=== PATIENT | female | born 1960 | race American Indian/Alaskan Native ===

== ENCOUNTER 2016-10-01 10:55 | Emergency (ER) | payer OTHER ==
[2016-10-01 10:56] VITALS: BMI 25.8
[2016-10-01 11:05] VITALS: TEMP 98
[2016-10-01] MEDS ORDERED: Fluticasone Nasal 50 mcg/Spray NS STA (11:26)
--- NOTE | 2016-10-01 11:38 | ED PDOC ---
Arrival/HPI - General Historian: Patient - History of Present Illness Time/Duration: < week Symptom Onset: Gradual Symptom Course: Unchanged Severity Level: 6 <Efren Rivera - Last Filed: 10/01/16 11:28> <Geo Billings - Last Filed: 10/01/16 15:41> - General Chief Complaint: Headache Time Seen by Provider: 10/01/16 11:10 - History of Present Illness Narrative History of Present Illness (Text): 10/01/16 11:28 This is a 55 year old female with a PMH notable for HTN presenting to the ED for evaluation of headache x 2 days. The patient notes that the headache began Tuesday night before bed. The patient states that she has recurrent sinus infections. The pain is described as a throbbing pressure around and behind her eyes. The patient notes that she swept several stories of stairs on Tuesday and has been sneezing excessively since then. The patient notes that she has seasonal allergies that begin around this time annually. The patient denies fever, chills, chest pain, SOB, abdominal pain, N/V/D/C, changes in bowel/ bladder, and extremity weakness/paresthesias. PMH: HTN Soc: 1/2ppd x 40 years, Denies EtOH/Illicit Drugs Surg: None Allergy: NKDA (Efren Rivera) Past Medical History - Provider Review Nursing Documentation Reviewed: Yes - Travel History Have you recently traveled outside [place] w/in the past 3 mons?: No - Past History Past History: Non-Contributing - Tetanus Immunization Tetanus Immunization: Unknown - Cardiac Hx Cardiac Disorders: Yes Hx Hypertension: Yes - Pulmonary Hx Respiratory Disorders: No - Neurological Hx Neurological Disorder: Yes Hx Vertigo: Yes - HEENT Hx HEENT Disorder: No - Renal Hx Renal Disorder: No - Endocrine/Metabolic Hx Endocrine Disorders: No - Hematological/Oncological Hx Blood Disorders: No - Integumentary Hx Dermatological Disorder: No - Musculoskeletal/Rheumatological Hx Musculoskeletal Disorders: No - Gastrointestinal Hx Gastrointestinal Disorders: No - Genitourinary/Gynecological Hx Genitourinary Disorders: No - Psychiatric Hx Psychophysiologic Disorder: No Hx Substance Use: No - Anesthesia Hx Anesthesia: No <Efren Rivera - Last Filed: 10/01/16 11:28> Family/Social History - Physician Review Nursing Documentation Reviewed: Yes Family/Social History: No Known Family HX Smoking Status: Light Smoker < 10 Cigarettes Daily (x 40 years) Hx Alcohol Use: Yes Hx Substance Use: No <Efren Rivera - Last Filed: 10/01/16 11:28> Allergies/Home Meds <Efren Rivera - Last Filed: 10/01/16 11:28> <Geo Billings - Last Filed: 10/01/16 15:41> Allergies/Adverse Reactions: Allergies No Known Allergies Allergy (Verified 06/14/16 12:51) Review of Systems - Physician Review All systems were reviewed & negative as marked: Yes - Review of Systems Constitutional: absent: Fatigue, Fevers Eyes: absent: Vision Changes ENT: absent: Hearing Changes Respiratory: Cough. absent: SOB, Sputum Cardiovascular: absent: Chest Pain Gastrointestinal: absent: Abdominal Pain Genitourinary Female: absent: Dysuria Musculoskeletal: absent: Arthralgias Skin: absent: Rash Neurological: Headache. absent: Dizziness, Focal Weakness Hemo/Lymphatic: absent: Adenopathy Psychiatric: absent: Anxiety <Efren Rivera - Last Filed: 10/01/16 11:28> Physical Exam Temperature: Afebrile Blood Pressure: Hypertensive Pulse: Regular Respiratory Rate: Normal Appearance: Positive for: Well-Appearing, Non-Toxic, Comfortable Pain Distress: None Mental Status: Positive for: Alert and Oriented X 3 - Systems Exam Head: Present: Atraumatic, Normocephalic, Tenderness (maxillary and frontal sinus tenderness to palpation). No: Contusion, Swelling Pupils: Present: PERRL Extroacular Muscles: Present: EOMI. No: Gaze Palsy Conjunctiva: Present: Normal. No: Injected Mouth: Present: Moist Mucous Membranes Pharnyx: Present: Normal. No: ERYTHEMA, EXUDATE, TONSILS ENLARGED, Peritonsilar Swelling, Uvular Deviation, Soft Palate/Uvular Edema Nose (External): Present: Atraumatic Nose (Internal): Present: Normal Inspection, Moist. No: Rhinorrhea, Purulent Mucous Neck: Present: Normal Range of Motion. No: Meningeal Signs, MIDLINE TENDERNESS , JVD, Lymphadenopathy Respiratory/Chest: Present: Clear to Auscultation, Good Air Exchange. No: Respiratory Distress, Accessory Muscle Use, Wheezes Abdomen: Present: Normal Bowel Sounds. No: Tenderness, Distention, Peritoneal Signs, Rebound, Guarding, McBurney's Point Tender, Rovsing's Sign Present Back: Present: Normal Inspection Upper Extremity: Present: Normal Inspection, Normal ROM, NORMAL PULSES, Neurovascularly Intact. No: Cyanosis, Edema Lower Extremity: Present: Normal Inspection, NORMAL PULSES, Normal ROM, Neurovascularly Intact. No: Edema Neurological: Present: GCS=15, CN II-XII Intact, Speech Normal Skin: Present: Warm, Dry, Normal Color. No: Rashes Psychiatric: Present: Alert, Oriented x 3 <Efren Rivera - Last Filed: 10/01/16 11:28> Vital Signs Temp Pulse Resp BP Pulse Ox 10/01/16 12:42 79 18 162/91 H 98 10/01/16 11:03 98.0 F 84 16 168/109 H 97 Medical Decision Making - RAD Interpretation Sales Account Specialist: ED Physician <Efren Rivera - Last Filed: 10/01/16 11:28> <Geo Billings - Last Filed: 10/01/16 15:41> ED Course and Treatment: 10/01/16 11:42 Impression: This is a 55 year old female with a PMH notable for HTN presenting to the ED for evaluation of headache x 2 days. The patient appears comfortable. Patient reports home resolution of symptoms with tylenol. The patient presently describes facial pain sinus in etiology. The patient has had many bouts of sinus infections per her own history. The patient will be managed with flonase and motrin for symptomatic and pain relief. Differential: Sinus Infection/URI Allergic Rhinitis Pneumonia Plan: Flonase NS Motrin 600mg PO CXR Prior Visits: No prior Inpatient Admissions Progress Note: Patient seen and examined at the bedside. Patient in no acute distress. Patient with report of facial sinus pain. Lungs clear, CXR preliminarily negative for acute pathology. Flonase and motrin given for symptomatic relief. Patient medically stable for DC home. (Efren Rivera) Patient Seen With Resident: In agreement with resident note. Patient was seen and evaluated with resident, came up with plan and treatment together.. (Geo Billings) - RAD Interpretation Narrative RAD Interpretations (Text): 10/01/16 11:49 CXR Portable- no acute pulmonary pathology (Efren Rivera) Radiology Orders: 10/01/16 11:26 CHEST PORTABLE [RAD] Stat - Medication Orders Current Medication Orders: Discontinued Medications Fluticasone Propionate (Flonase) 1 actuation NS STAT STA Stop: 10/01/16 11:27 Last Admin: 10/01/16 11:49 Dose: 1 Actuation Ibuprofen (Motrin Tab) 600 mg PO STAT STA Stop: 10/01/16 11:28 Last Admin: 10/01/16 11:49 Dose: 600 MG MAR Pain/Vitals Document 10/01/16 11:49 SF (Rec: 10/01/16 11:49 SF [employer]-[id number]) Pain Reassessment Is This A Pain ReAssessment? No Sleep Is patient sleeping during reassessment? No Presence of Pain Presence of Pain Yes Pain Scale Used Pain Scale Used Numeric Location Pain Location Body Keg Varnisher Description Constant Intensity 5 Scale Used Numeric - PA / BARIATRIC PROGRAM COORDINATOR / Resident Statement MD/DO has examined the patient and agrees with the treatment plan. (pt seen with resident. sinus congestion, cough. exam consistent with sinus fisher. neuro intact. stable for outpt managment) <Geo Billings - Last Filed: 10/01/16 15:41> Disposition/Present on Arrival - Present on Arrival Any Indicators Present on Arrival: No History of DVT/PE: No History of Uncontrolled Diabetes: No Urinary Catheter: No History of Decub. Ulcer: No History Surgical Site Infection Following: None - Disposition Have Diagnosis and Disposition been Completed?: Yes Disposition Time: 12:00 Patient Plan: Discharge <Efren Rivera - Last Filed: 10/01/16 11:28> <Geo Billings - Last Filed: 10/01/16 15:41> - Disposition Diagnosis: Sinus infection, Upper respiratory infection Disposition: HOME/ ROUTINE Discharge Instructions (ExitCare): Sinusitis (ED), Rhinosinusitis (ED), Upper Respiratory Infection (ED), Viral Syndrome (ED), Cold Symptoms (ED), Effects of Smoking, Alcohol, and Medicines on (ED), How to Stop Smoking (ED) Print Language: KOREAN Additional Instructions: 1.) Take flonase in accordance with prescriptions (1 spray per nostril daily) 2.) Recommend cessation of smoking 3.) Motrin/Tylenol as needed for pain relief 4.) Follow up with PMD following discharge 5.) If symptoms return, please return to the ED for evaluation 6.) Maintain adequate hydration 7.) Take all medications in accordance with prescriptions Prescriptions: Fluticasone Propionate [Flonase] 1 spr NS DAILY #1 bottle Referrals: PCP,NO [Primary Care Provider] - Follow up with primary Forms: WORK NOTE
--- NOTE | 2016-10-01 12:34 | RAD ---
HISTORY: cough, congestion COMPARISON: No prior. FINDINGS: LUNGS: The lungs are hyperinflated and there is peribronchial cuffing with streaky opacities in both lungs. There is no focal consolidation. PLEURA: No significant pleural effusion identified, no pneumothorax apparent. CARDIOVASCULAR: Normal. OSSEOUS STRUCTURES: No significant abnormalities. VISUALIZED UPPER ABDOMEN: Normal. OTHER FINDINGS: None. IMPRESSION: COPD. No acute findings.
[2016-10-01 12:43] VITALS: BP 162/91; PULSE 79; RESP 18; O2SAT 98
== END 2016-10-01 13:05 | disposition home or self-care (01) ==
LOC: ED 10:55
DX: J06.9 Acute upper respiratory infection, unspecified (principal); J32.9 Chronic sinusitis, unspecified; I10 Essential (primary) hypertension

== ENCOUNTER 2017-03-07 08:12 | Emergency (ER) | payer OTHER ==
[2017-03-07 08:13] VITALS: BMI 25.8
[2017-03-07 08:33] VITALS: PULSE 67; RESP 18; TEMP 98.6; O2SAT 99
--- NOTE | 2017-03-07 09:12 | ED PDOC ---
Arrival/HPI - General Historian: Patient - General Chief Complaint: Female Genitourinary Time Seen by Provider: 03/07/17 09:09 - History of Present Illness Narrative History of Present Illness (Text): 03/07/17 09:11 56 y/o female, pmh including htn (didn't take her medication today), post menopausal, nkda, c/o vaginal itching and burning urination x 4 days. Pt. stated that she tried over the counter cream with limited relief, still burning with vaginal itching, no pelvic or abdominal pain, no fever or chills, no headache, no nausea or vomiting, no other medical or psychological complaints. (Levar Barnes) Past Medical History - Provider Review Nursing Documentation Reviewed: Yes - Past History Past History: Non-Contributing - Tetanus Immunization Tetanus Immunization: Unknown - Reproductive Menopause: Yes - Cardiac Hx Cardiac Disorders: Yes Hx Hypertension: Yes - Pulmonary Hx Respiratory Disorders: No - Neurological Hx Neurological Disorder: Yes Hx Vertigo: Yes - HEENT Hx HEENT Disorder: No - Renal Hx Renal Disorder: No - Endocrine/Metabolic Hx Endocrine Disorders: No - Hematological/Oncological Hx Blood Disorders: No - Integumentary Hx Dermatological Disorder: No - Musculoskeletal/Rheumatological Hx Musculoskeletal Disorders: No - Gastrointestinal Hx Gastrointestinal Disorders: No - Genitourinary/Gynecological Hx Genitourinary Disorders: No - Psychiatric Hx Psychophysiologic Disorder: No Hx Substance Use: No - Anesthesia Hx Anesthesia: No Family/Social History - Physician Review Nursing Documentation Reviewed: Yes Family/Social History: Unknown Family HX Smoking Status: Light Smoker < 10 Cigarettes Daily Hx Alcohol Use: Yes Hx Substance Use: No Allergies/Home Meds Allergies/Adverse Reactions: Allergies No Known Allergies Allergy (Verified 06/14/16 12:51) Review of Systems - Review of Systems Constitutional: absent: Fatigue, Fevers Eyes: absent: Vision Changes ENT: absent: Hearing Changes Respiratory: absent: SOB, Cough Cardiovascular: absent: Chest Pain Gastrointestinal: absent: Abdominal Pain, Nausea, Vomiting Genitourinary Female: Dysuria, Other (vaginal discharge). absent: Frequency, Hematuria, Urine Output Changes, Vaginal Bleeding Skin: Pruritis. absent: Rash, Skin Lesions, Laceration, Abscess, Ulcer Neurological: absent: Headache, Dizziness Physical Exam Vital Signs Reviewed: Yes Temperature: Afebrile Blood Pressure: Hypertensive Pulse: Regular Respiratory Rate: Normal Appearance: Positive for: Well-Appearing, Non-Toxic, Comfortable Pain Distress: None Mental Status: Positive for: Alert and Oriented X 3 - Systems Exam Head: Present: Atraumatic, Normocephalic Pupils: Present: PERRL Extroacular Muscles: Present: EOMI Conjunctiva: Present: Normal Mouth: Present: Moist Mucous Membranes Neck: Present: Normal Range of Motion Respiratory/Chest: Present: Clear to Auscultation, Good Air Exchange. No: Respiratory Distress, Accessory Muscle Use Cardiovascular: Present: Regular Rate and Rhythm, Normal S1, S2. No: Murmurs Abdomen: Present: Normal Bowel Sounds. No: Tenderness, Distention, Peritoneal Signs Genitourinary/Pelvic Exam: Present: Normal External Genitalia, Vaginal Discharge (white thick cottage cheesy material), Cervical os Closed, Other ( Female Power Sweeper Operator: ER Staff Danuta Lee). No: Vaginal Bleeding, Vaginal Lesions, Adenexal Tenderness, Adenexal Mass, Cervical Motion Tendernes, Odor Back: Present: Normal Inspection Upper Extremity: Present: Normal Inspection. No: Cyanosis, Edema Lower Extremity: Present: Normal Inspection. No: Edema Neurological: Present: GCS=15, CN II-XII Intact, Speech Normal Skin: Present: Warm, Dry, Normal Color. No: Rashes Psychiatric: Present: Alert, Oriented x 3, Normal Insight, Normal Concentration Vital Signs Temp Pulse Resp BP Pulse Ox 03/07/17 10:14 153/91 H 03/07/17 08:30 98.6 F 67 18 162/107 H 99 Medical Decision Making ED Course and Treatment: 03/07/17 09:48 I was available for consultation during PA evaluation. The chart was reviewed by me, and I agree with disposition. The documented history was done by the physician precinct police lieutenant. The documented physical exam was done by the physician precinct police lieutenant. The documented procedures were done by the physician precinct police lieutenant. (Constantine Goncalves) 03/07/17 09:10 -ua 03/07/17 09:53 -Pt. stated that she has a partner that potentially can be carrying gc/chlamydia , preferred prophylatic treatment, rocephine and azithromycin ordered. -Diflucan ordered -UA show +UTI. Pt. refused HIV test. -Discharge home with macrobid, notify all your sexual partners for the std testing and use condomn in the future, follow up with your own pmd within 2 days , return to the ER for any new or worsening signs or symptoms. (Levar Barnes) - Lab Interpretations Lab Results: Lab Results 03/07/17 09:33: Urine Color Light yellow, Urine Appearance Cloudy, Urine pH 6.0 , Ur Specific [place] 1.025, Urine Protein Trace H, Urine Glucose (UA) Negative , Urine Ketones Negative, Urine Blood Moderate H, Urine Nitrate Negative, Urine Bilirubin Negative, Urine Urobilinogen 1.0 H, Ur Leukocyte Esterase Large H, Urine RBC 1 - 3, Urine WBC 10 - 15, Ur Epithelial Cells 10 - 12, Urine Bacteria Few - Medication Orders Current Medication Orders: Discontinued Medications Azithromycin (Zithromax) 1,000 mg PO STAT STA PRN Reason: Protocol Stop: 03/07/17 09:48 Last Admin: 03/07/17 09:56 Dose: 1,000 mg Ceftriaxone Sodium (Rocephin) 250 mg IM STAT STA PRN Reason: Protocol Stop: 03/07/17 09:48 Last Admin: 03/07/17 09:56 Dose: 250 mg Fluconazole (Diflucan) 150 mg PO STAT STA PRN Reason: Protocol Stop: 03/07/17 09:24 Last Admin: 03/07/17 09:52 Dose: 150 mg - PA / DIRECTOR OF REHABILITATION AND WELLNESS / Resident Statement MD/DO has reviewed & agrees with the documentation as recorded. Disposition/Present on Arrival - Present on Arrival Any Indicators Present on Arrival: No History of DVT/PE: No History of Uncontrolled Diabetes: No Urinary Catheter: No History of Decub. Ulcer: No History Surgical Site Infection Following: None - Disposition Have Diagnosis and Disposition been Completed?: Yes Disposition Time: 09:11 Patient Plan: Discharge - Disposition Diagnosis: Vaginal yeast infection, Possible exposure to STD Disposition: HOME/ ROUTINE Patient Problems: Current Active Problems Problem Status Onset Vaginal yeast infection Acute Possible exposure to STD Acute Condition: GOOD Additional Instructions: -Discharge home with macrobid, notify all your sexual partners for the std testing and use condomn in the future, follow up with your own pmd within 2 days , return to the ER for any new or worsening signs or symptoms. Prescriptions: Nitrofurantoin Macrocrystals [Macrobid] 100 mg PO BID #14 cap Referrals: PCP,NO [Primary Care Provider] - Follow up with primary [facility] [place] [Outside] - Follow up with primary Forms: [employer] (Vincentian), WORK NOTE
[2017-03-07 09:38] LABS: URINE BILIRUBIN NEGATIVE (NEGATIVE); URINE BLOOD MODERATE (NEGATIVE); URINE GLUCOSE (UA) NEGATIVE (NEGATIVE); URINE KETONE NEGATIVE (NEGATIVE); URINE LEUKOCYTE ESTERASE LARGE Leu/uL (NEGATIVE); URINE PROTEIN TRACE mg/dL (<30 mg/dL)
[2017-03-07 09:39] LABS: URINE APPEARANCE CLOUDY (CLEAR); URINE COLOR LIGHT YELLOW (YELLOW)
[2017-03-07 09:44] LABS: URINE BACTERIA FEW (NEG)
[2017-03-07] MEDS ORDERED: cefTRIAXone (Rocephin) 250 mg Inj IM STA (09:47)
[2017-03-07 10:15] VITALS: BP 153/91
== END 2017-03-07 10:15 | disposition home or self-care (01) ==
LOC: ED 08:12
DX: B37.3 Candidiasis of vulva and vagina (principal)
CPT/HCPCS: 81001; 87086; 96372; 99282; J0696

== ENCOUNTER 2017-03-09 14:32 | Emergency (ER) | payer OTHER ==
[2017-03-09 14:32] VITALS: BMI 25.8
[2017-03-09 14:44] VITALS: BP 107/76; PULSE 75; RESP 19; TEMP 98.1; O2SAT 98
--- NOTE | 2017-03-09 15:21 | ED PDOC ---
Arrival/HPI - General Historian: Patient - History of Present Illness Time/Duration: > week Symptom Onset: Gradual Symptom Course: Improving Context: Home <Layla Cage - Last Filed: 03/09/17 16:23> <Alexandr Lerma - Last Filed: 03/09/17 16:34> - General Time Seen by Provider: 03/09/17 14:34 - History of Present Illness Narrative History of Present Illness (Text): 03/09/17 15:16 56 year old female with past medical history of HTN presents for vaginal discharge ongoing for over 1 week. Patient states that she was seen in ED at [facility] 6 days ago for similar complaints. At that time, she was treated prophylactically for chlamydia and yeast infection. Patient was also found to have UTI and was sent home on Macrobid. Patient states that the medication she received in ED (diflucan, zithromax and rocephin) gave her diarrhea. She is having loose stools every time she eats. Patient did not start the macrobid treatment because she was worried macrobid will worsen her diarrhea. At this time, pt states that she still has slight vaginal discharge and vaginal pruritus. Patient denies having any vaginal bleeding. She has not had sex in past week but is regularly sexually active with 1 partner. Denies having any dysuria. (Layla Cage) Past Medical History - Provider Review Nursing Documentation Reviewed: Yes - Travel History Have you recently traveled outside [place] w/in the past 3 mons?: No - Past History Past History: Non-Contributing - Infectious Disease Hx of Infectious Diseases: None - Tetanus Immunization Tetanus Immunization: Unknown - Cardiac Hx Cardiac Disorders: Yes Hx Hypertension: Yes - Pulmonary Hx Respiratory Disorders: No - Neurological Hx Neurological Disorder: Yes Hx Vertigo: Yes - HEENT Hx HEENT Disorder: No - Renal Hx Renal Disorder: No - Endocrine/Metabolic Hx Endocrine Disorders: No - Hematological/Oncological Hx Blood Disorders: No - Integumentary Hx Dermatological Disorder: No - Musculoskeletal/Rheumatological Hx Musculoskeletal Disorders: No - Gastrointestinal Hx Gastrointestinal Disorders: No - Genitourinary/Gynecological Hx Genitourinary Disorders: No - Psychiatric Hx Psychophysiologic Disorder: No Hx Substance Use: No - Anesthesia Hx Anesthesia: No <Layla Cage - Last Filed: 03/09/17 16:23> Family/Social History - Physician Review Nursing Documentation Reviewed: Yes Family/Social History: Unknown Family HX Smoking Status: Light Smoker < 10 Cigarettes Daily Hx Alcohol Use: Yes Hx Substance Use: No <Layla Cage - Last Filed: 03/09/17 16:23> Allergies/Home Meds <Layla Cage - Last Filed: 03/09/17 16:23> <Alexandr Lerma - Last Filed: 03/09/17 16:34> Allergies/Adverse Reactions: Allergies No Known Allergies Allergy (Verified 03/09/17 14:38) Review of Systems - Review of Systems Constitutional: Normal. absent: Fatigue, Fevers Eyes: Normal. absent: Vision Changes, Photophobia ENT: Normal. absent: Rhinorrhea, Sinus Congestion Respiratory: Normal. absent: SOB, Cough, Sputum, Wheezing Cardiovascular: Normal. absent: Chest Pain, Palpitations, Edema, Calf Pain Gastrointestinal: Diarrhea. absent: Constipation, Nausea, Vomiting Genitourinary Female: Vaginal Discharge, Other (vaginal pruritis ). absent: Dysuria, Frequency, Hematuria, Urine Output Changes, Vaginal Bleeding Musculoskeletal: Normal. absent: Arthralgias, Back Pain Neurological: Normal. absent: Headache, Dizziness Psychiatric: Normal. absent: Anxiety, Depression <Layla Cage - Last Filed: 03/09/17 16:23> Physical Exam Vital Signs Reviewed: Yes Temperature: Afebrile Blood Pressure: Normal Pulse: Regular Respiratory Rate: Normal Appearance: Positive for: Well-Appearing, Non-Toxic, Comfortable Pain Distress: None Mental Status: Positive for: Alert and Oriented X 3 - Systems Exam Head: Present: Atraumatic, Normocephalic Extroacular Muscles: Present: EOMI Mouth: Present: Moist Mucous Membranes Pharnyx: No: Muffled/Hoarse Voice Neck: Present: Normal Range of Motion Respiratory/Chest: Present: Clear to Auscultation, Good Air Exchange. No: Respiratory Distress, Accessory Muscle Use, Wheezes, Rales, Retracting, Rhonchi Cardiovascular: Present: Regular Rate and Rhythm, Normal S1, S2. No: Murmurs, Muffled Abdomen: Present: Normal Bowel Sounds. No: Tenderness, Distention, Peritoneal Signs, Rebound, Guarding, Mass/Organomegaly Genitourinary/Pelvic Exam: Present: Normal External Genitalia, Vaginal Discharge (physiological ), Other (performed with wiring technician, biomedical engineering technician in the room ). No: Vaginal Bleeding, Vaginal Lesions, Adenexal Tenderness, Adenexal Mass, Cervical Motion Tendernes, Odor Lower Extremity: Present: Normal Inspection, NORMAL PULSES. No: Edema, CALF TENDERNESS Neurological: Present: GCS=15, Speech Normal Skin: Present: Warm, Dry, Normal Color. No: Rashes Psychiatric: Present: Alert, Oriented x 3, Normal Insight, Normal Concentration <Layla Cage - Last Filed: 03/09/17 16:23> Medical Decision Making <Layla Cage - Last Filed: 03/09/17 16:23> <Alexandr Lerma - Last Filed: 03/09/17 16:34> ED Course and Treatment: 03/09/17 15:26 56 year old female presents for vaginal discharge. Vaginal exam shows physiological discharge and no cervical motion tenderness. Patient will be treated for bacterial vaginosis with flagyl 500 mg PO BID for 7 days. She will also be treated for yeast infection with diflucan. She will be discharged with 1 additional dose of diflucan to be taken 1 week from today. She is told to start her macrobid treatment for UTI. (Layla Cage) 03/09/17 16:33 Patient seen and examined with resident. Agree with treatment and plan. (Aleaxndr Lerma) - Medication Orders Current Medication Orders: Discontinued Medications Fluconazole (Diflucan) 150 mg PO STAT STA PRN Reason: Protocol Stop: 03/09/17 15:33 Last Admin: 03/09/17 15:45 Dose: 150 mg - PA / PUBLIC RELATIONS REPRESENTATIVE / Resident Statement ISAIAH has reviewed & agrees with the documentation as recorded. ISAIAH has examined the patient and agrees with the treatment plan. <Alexandr Lerma - Last Filed: 03/09/17 16:34> Disposition/Present on Arrival - Present on Arrival Any Indicators Present on Arrival: No History of DVT/PE: No History of Uncontrolled Diabetes: No Urinary Catheter: No History of Decub. Ulcer: No History Surgical Site Infection Following: None - Disposition Have Diagnosis and Disposition been Completed?: Yes Disposition Time: 15:29 Patient Plan: Discharge <Layla Cage - Last Filed: 03/09/17 16:23> <Alexandr Lerma - Last Filed: 08/23/17 16:34> - Disposition Diagnosis: Bacterial vaginosis, Yeast infection Disposition: HOME/ ROUTINE Condition: GOOD Additional Instructions: Mallory Watkins, thank you for letting us take care of you today. Your provider was Dr. Layla Cage. You were treated for bacterial vaginosis. The emergency medical care you received today was directed at your acute symptoms. If you were prescribed any medication, please fill it and take as directed. It may take several days for your symptoms to resolve. Return to the Emergency Department if your symptoms worsen, do not improve, or if you have any other problems. Please contact your doctor or call one of the physicians/clinics you have been referred to that are listed on the Patient Visit Information form that is included in your discharge packet. Bring any paperwork you were given at discharge with you along with any medications you are taking to your follow up visit. Our treatment cannot replace ongoing medical care by a primary care provider (PCP) outside of the emergency department. Thank you for allowing the [facility] team to be part of your care today. If you had an X-Ray or CT scan: A Radiologist will review the ED reading if any change in treatment is needed we will contact you. If you had a blood, urine, or wound culture: It will take several days for the results, if any change in treatment is needed we will contact you. If you had an STI test: It will take 48 hours for the results. Please call after 1 week if you have not heard back. Prescriptions: Fluconazole [Diflucan] 150 mg PO ONCE #1 tab Metronidazole [Flagyl] 500 mg PO BID #14 tablet Referrals: PCP,NO [Primary Care Provider] - Follow up with primary Forms: WORK NOTE
== END 2017-03-09 16:13 | disposition home or self-care (01) ==
LOC: ED 14:32
DX: B37.9 Candidiasis, unspecified (principal); N76.0 Acute vaginitis

== ENCOUNTER 2017-06-26 12:07 | Emergency (ER) | payer OTHER ==
[2017-06-26 12:08] VITALS: BMI 25.8
[2017-06-26 12:23] VITALS: PULSE 98; RESP 18; TEMP 98.3; O2SAT 99
[2017-06-26 12:32] VITALS: BP 132/85
--- NOTE | 2017-06-26 12:32 | ED PDOC ---
Arrival/HPI - General Chief Complaint: Cough, Cold, Congestion Time Seen by Provider: 06/26/17 12:27 Historian: Patient - History of Present Illness Narrative History of Present Illness (Text): 06/26/17 12:27 56 y/o female, pmh including htn, nkda, post menopausal, c/o throat pain and coughing x 2 days. Aching throat pain, associated with dry cough, no night sweat, no dizziness, no rash, no chest pain or shortness of breath, no change in vision, no other medical or psychological complaints. Past Medical History - Provider Review Nursing Documentation Reviewed: Yes - Past History Past History: Non-Contributing - Infectious Disease Hx of Infectious Diseases: None - Tetanus Immunization Tetanus Immunization: Unknown - Reproductive Menopause: Yes - Cardiac Hx Cardiac Disorders: Yes Hx Hypertension: Yes - Pulmonary Hx Respiratory Disorders: No - Neurological Hx Neurological Disorder: Yes Hx Vertigo: Yes - HEENT Hx HEENT Disorder: No - Renal Hx Renal Disorder: No - Endocrine/Metabolic Hx Endocrine Disorders: No - Hematological/Oncological Hx Blood Disorders: No - Integumentary Hx Dermatological Disorder: No - Musculoskeletal/Rheumatological Hx Musculoskeletal Disorders: No - Gastrointestinal Hx Gastrointestinal Disorders: No - Genitourinary/Gynecological Hx Genitourinary Disorders: No - Psychiatric Hx Psychophysiologic Disorder: No Hx Substance Use: No - Anesthesia Hx Anesthesia: No Family/Social History - Physician Review Nursing Documentation Reviewed: Yes Family/Social History: Unknown Family HX Smoking Status: Light Smoker < 10 Cigarettes Daily Hx Alcohol Use: Yes Hx Substance Use: No Allergies/Home Meds Allergies/Adverse Reactions: Allergies No Known Allergies Allergy (Verified 03/09/17 14:38) Review of Systems - Review of Systems Constitutional: absent: Fatigue, Fevers Eyes: absent: Vision Changes ENT: Sore Throat. absent: Hearing Changes, Rhinorrhea Respiratory: Cough Cardiovascular: absent: Chest Pain Gastrointestinal: absent: Abdominal Pain, Nausea, Vomiting Musculoskeletal: absent: Arthralgias, Back Pain, Myalgias Skin: absent: Rash, Pruritis Neurological: absent: Headache, Dizziness Psychiatric: absent: Anxiety, Depression Physical Exam Vital Signs Reviewed: Yes Vital Signs Temp Pulse Resp BP Pulse Ox 06/26/17 12:23 98.3 F 98 H 18 155/105 H 99 Temperature: Afebrile Pulse: Regular Respiratory Rate: Normal Appearance: Positive for: Well-Appearing, Non-Toxic, Comfortable Pain Distress: None Mental Status: Positive for: Alert and Oriented X 3 - Systems Exam Head: Present: Atraumatic, Normocephalic Pupils: Present: PERRL Extroacular Muscles: Present: EOMI Conjunctiva: Present: Normal Mouth: Present: Moist Mucous Membranes Pharnyx: Present: ERYTHEMA. No: EXUDATE, TONSILS ENLARGED, Uvular Deviation, Muffled/Hoarse Voice Nose (Internal): Present: Normal Inspection, No Active Bleeding, Rhinorrhea Neck: Present: Normal Range of Motion, Trachea Midline. No: Lymphadenopathy Respiratory/Chest: Present: Clear to Auscultation, Good Air Exchange. No: Respiratory Distress, Accessory Muscle Use, Wheezes, Decreased Breath Sounds, Retracting, Rhonchi Cardiovascular: Present: Regular Rate and Rhythm, Normal S1, S2. No: Murmurs Abdomen: Present: Normal Bowel Sounds. No: Tenderness, Distention, Peritoneal Signs Back: Present: Normal Inspection Upper Extremity: Present: Normal Inspection. No: Cyanosis, Edema Lower Extremity: Present: Normal Inspection. No: Edema Neurological: Present: GCS=15, Speech Normal, Motor Func Grossly Intact, Gait Normal, Memory Normal Skin: Present: Warm, Dry, Normal Color. No: Rashes Psychiatric: Present: Alert, Oriented x 3, Normal Insight, Normal Concentration Medical Decision Making ED Course and Treatment: 06/26/17 12:33 -Discharge home with zithromax, robitussin dm, tylenol, stay hydrated, bed rest , follow up with your own pmd and ENT within 2 days, return to the ER for any new or worsening signs or symptoms. - PA / SALES SERVICE PROFESSIONAL / Resident Statement /DO has reviewed & agrees with the documentation as recorded. Disposition/Present on Arrival - Present on Arrival Any Indicators Present on Arrival: No History of DVT/PE: No History of Uncontrolled Diabetes: No Urinary Catheter: No History of Decub. Ulcer: No History Surgical Site Infection Following: None - Disposition Have Diagnosis and Disposition been Completed?: Yes Diagnosis: URI (upper respiratory infection) Disposition: HOME/ ROUTINE Disposition Time: 12:34 Patient Plan: Discharge Condition: GOOD Additional Instructions: -Discharge home with zithromax, robitussin dm, tylenol, stay hydrated, bed rest , follow up with your own pmd and ENT within 2 days, return to the ER for any new or worsening signs or symptoms. Prescriptions: Acetaminophen [Tylenol 325mg tab] 2 tab PO QID PRN #30 tab PRN Reason: Other Azithromycin [Zithromax] 250 mg PO DAILY #6 tab guaiFENesin/Dextromethorphan [guaiFENesin-DM] 10 ml PO QID PRN #220 ml PRN Reason: Other Referrals: Rufus Morocho DO [Staff Provider] - Follow up with primary [facility] [place] - Follow up with primary Forms: WORK NOTE
== END 2017-06-26 12:54 | disposition home or self-care (01) ==
LOC: ED 12:07
DX: J06.9 Acute upper respiratory infection, unspecified (principal); I10 Essential (primary) hypertension; F17.210 Nicotine dependence, cigarettes, uncomplicated

== ENCOUNTER 2017-09-20 11:59 | Emergency (ER) | payer OTHER ==
[2017-09-20 11:59] VITALS: BMI 25.8
[2017-09-20 12:13] VITALS: BP 124/79; PULSE 80; RESP 18; TEMP 98.4; O2SAT 97
--- NOTE | 2017-09-20 12:27 | ED PDOC ---
Arrival/HPI - General Chief Complaint: Back Pain Time Seen by Provider: 09/20/17 12:20 Historian: Patient - History of Present Illness Narrative History of Present Illness (Text): 09/20/17 12:30 56 year old female, whose past medical history includes hypertension, who presents to the emergency department complaining of non-radiating right lower back pain since one week. Patient reports she's had this similar symptom in the past due to her physical activity at work. She notes being prescribed muscle relaxers,which usually help and has been taking Aleve for temporary relief. Additionally, she adds the pain is worse with movement. Patient denies dysuira, hematuria, abdominal pain, rash, cough, fever, or other complaints. Time/Duration: 1 week Symptom Onset: Gradual Symptom Course: Unchanged Context: Work Past Medical History - Provider Review Nursing Documentation Reviewed: Yes - Past History Past History: Non-Contributing - Infectious Disease Hx of Infectious Diseases: None - Tetanus Immunization Tetanus Immunization: Unknown - Cardiac Hx Cardiac Disorders: Yes Hx Hypertension: Yes - Pulmonary Hx Respiratory Disorders: No - Neurological Hx Neurological Disorder: Yes Hx Vertigo: Yes - HEENT Hx HEENT Disorder: No - Renal Hx Renal Disorder: No - Endocrine/Metabolic Hx Endocrine Disorders: No - Hematological/Oncological Hx Blood Disorders: No - Integumentary Hx Dermatological Disorder: No - Musculoskeletal/Rheumatological Hx Musculoskeletal Disorders: No - Gastrointestinal Hx Gastrointestinal Disorders: No - Genitourinary/Gynecological Hx Genitourinary Disorders: No - Psychiatric Hx Psychophysiologic Disorder: No Hx Substance Use: No - Anesthesia Hx Anesthesia: No Family/Social History - Physician Review Nursing Documentation Reviewed: Yes Family/Social History: Unknown Family HX Smoking Status: Light Smoker < 10 Cigarettes Daily Hx Alcohol Use: Yes Frequency of alcohol use: Daily Hx Substance Use: No Allergies/Home Meds Allergies/Adverse Reactions: Allergies No Known Allergies Allergy (Verified 09/20/17 12:13) Review of Systems - Physician Review All systems were reviewed & negative as marked: Yes - Review of Systems Constitutional: absent: Fevers Gastrointestinal: absent: Abdominal Pain Genitourinary Female: absent: Dysuria Musculoskeletal: Back Pain (right lumbar pain) Physical Exam - Physical Exam Narrative Physical Exam (Text): 09/20/17 Constitutional: No acute distress. Head: Normocephalic. Atraumatic. Eyes: PERRL. ENT: Moist mucous membranes. Neck: Supple. Cardiovascular: Regular rate. Chest: No tenderness. Respiratory: Clear to auscultation bilaterally. GI: Soft. Nontender. Nondistended. Back: No CVA tenderness. No midline tenderness. Musculoskeletal: No tenderness or swelling of extremities. Skin: No rash. Neurologic: Alert, no focal deficit. Vital Signs Reviewed: Yes Vital Signs Temp Pulse Resp BP Pulse Ox 09/20/17 12:04 98.4 F 80 18 124/79 97 Temperature: Afebrile Blood Pressure: Normal Pulse: Regular Respiratory Rate: Normal Appearance: Positive for: Well-Appearing, Non-Toxic, Comfortable Pain Distress: None Mental Status: Positive for: Alert and Oriented X 3 Medical Decision Making ED Course and Treatment: 09/20/17 Impression: 56 year old female with unremarkable physical exam complaining of lower back pain. Plan: -- Reassess and disposition Progress Notes: 09/20/17 12:35 On reevaluation the patient feels better and is in no acute distress. I have discussed the results and plan with the patient, who expresses understanding. Patient given the opportunity to ask question, all questions were answered and there is agreement with the plan to discharge the patient home with prescription for Cyclobenzaprine. Patient is stable for discharge. Patient was instructed to follow up with physician/clinic in 1-2 days or return if symptoms persist/worsen or new concerning symptoms arise. - Scribe Statement The provider has reviewed the documentation as recorded by the Kaylahe Sangeetha Smith Provider Scribe Attestation: All medical record entries made by the Scribe were at my direction and personally dictated by me. I have reviewed the chart and agree that the record accurately reflects my personal performance of the history, physical exam, medical decision making, and the department course for this patient. I have also personally directed, reviewed, and agree with the discharge instructions and disposition. Disposition/Present on Arrival - Present on Arrival Any Indicators Present on Arrival: No History of DVT/PE: No History of Uncontrolled Diabetes: No Urinary Catheter: No History of Decub. Ulcer: No History Surgical Site Infection Following: None - Disposition Have Diagnosis and Disposition been Completed?: Yes Diagnosis: Back pain Disposition: HOME/ ROUTINE Disposition Time: 12:28 Patient Plan: Discharge Condition: STABLE Discharge Instructions (ExitCare): Low Back Pain (DC) Prescriptions: Cyclobenzaprine [Cyclobenzaprine HCl] 10 mg PO Q8H PRN #21 tab PRN Reason: Pain, Moderate (4-7) Forms: [facility] (Montenegrin), WORK NOTE
== END 2017-09-20 12:46 | disposition home or self-care (01) ==
LOC: ED 11:59
DX: M54.5 Low back pain (principal); I10 Essential (primary) hypertension; F17.210 Nicotine dependence, cigarettes, uncomplicated

== ENCOUNTER 2018-04-03 16:07 | Emergency (ER) | payer OTHER ==
[2018-04-03 16:08] VITALS: BMI 25.8
[2018-04-03 17:39] VITALS: RESP 18
--- NOTE | 2018-04-03 18:12 | ED PDOC ---
Arrival/HPI - General Chief Complaint: Shortness Of Breath Time Seen by Provider: 04/03/18 17:37 Historian: Patient - History of Present Illness Narrative History of Present Illness (Text): 04/03/18 17:43 57 year old female, with past medical history of hypertension, presents to the Emergency department complaining of left upper back pain since this morning. Patient additionally informs a cold associated with rhinorrhea, sneezing and productive cough since yesterday. Patient states she was [place] when she attempted to hold in her sneeze leading to muscle spasm in her back and has been experiencing back discomfort since then. Patient denies any other somatic complaints. Patient denies any fevers, chills, headache, dizziness, chest pain, shortness of breath, dyspnea on exertion, abdominal pain, nausea, vomiting, diarrhea, back pain, neck pain, or any other complaints. Patient presents to the Emergency department for medical evaluation. Time/Duration: 24 hours Symptom Onset: Gradual Symptom Course: Unchanged Quality: Aching Activities at Onset: Light Context: Home Past Medical History - Provider Review Nursing Documentation Reviewed: Yes - Past History Past History: Non-Contributing - Infectious Disease Hx of Infectious Diseases: None - Tetanus Immunization Tetanus Immunization: Unknown - Reproductive Menopause: Yes - Cardiac Hx Cardiac Disorders: Yes Hx Hypertension: Yes - Pulmonary Hx Respiratory Disorders: No - Neurological Hx Neurological Disorder: Yes Hx Vertigo: Yes - HEENT Hx HEENT Disorder: No - Renal Hx Renal Disorder: No - Endocrine/Metabolic Hx Endocrine Disorders: No - Hematological/Oncological Hx Blood Disorders: No - Integumentary Hx Dermatological Disorder: No - Musculoskeletal/Rheumatological Hx Musculoskeletal Disorders: No - Gastrointestinal Hx Gastrointestinal Disorders: No - Genitourinary/Gynecological Hx Genitourinary Disorders: No - Psychiatric Hx Psychophysiologic Disorder: No Hx Substance Use: No - Anesthesia Hx Anesthesia: No Family/Social History - Physician Review Nursing Documentation Reviewed: Yes Family/Social History: No Known Family HX Smoking Status: Light Smoker < 10 Cigarettes Daily Hx Alcohol Use: Yes Hx Substance Use: No Allergies/Home Meds Allergies/Adverse Reactions: Allergies No Known Allergies Allergy (Verified 09/20/17 12:13) Review of Systems - Physician Review All systems were reviewed & negative as marked: Yes - Review of Systems Constitutional: absent: Fevers ENT: Rhinorrhea, Sinus Congestion Respiratory: Cough. absent: SOB Cardiovascular: absent: Chest Pain, ADAMS Gastrointestinal: absent: Abdominal Pain, Diarrhea, Nausea, Vomiting Musculoskeletal: absent: Back Pain, Neck Pain Neurological: absent: Headache, Dizziness Physical Exam Vital Signs Reviewed: Yes Vital Signs Temp Pulse Resp BP Pulse Ox 04/03/18 19:45 97.9 F 60 18 150/80 100 04/03/18 18:48 18 98 04/03/18 17:39 97.7 F 56 L 18 149/82 100 Temperature: Afebrile Blood Pressure: Normal Pulse: Regular Respiratory Rate: Normal Appearance: Positive for: Well-Appearing, Non-Toxic, Comfortable Pain Distress: None Mental Status: Positive for: Alert and Oriented X 3 - Systems Exam Head: Present: Atraumatic, Normocephalic Pupils: Present: PERRL Extroacular Muscles: Present: EOMI Conjunctiva: Present: Normal Mouth: Present: Moist Mucous Membranes Neck: Present: Normal Range of Motion Respiratory/Chest: Present: Clear to Auscultation, Good Air Exchange. No: Respiratory Distress, Accessory Muscle Use Cardiovascular: Present: Regular Rate and Rhythm, Normal S1, S2. No: Murmurs Abdomen: No: Tenderness, Distention, Peritoneal Signs Back: Present: Other (Back muscle spasm noted.). No: Midline Tenderness Upper Extremity: Present: Normal Inspection. No: Cyanosis, Edema Lower Extremity: Present: Normal Inspection. No: Edema Neurological: Present: GCS=15, CN II-XII Intact, Speech Normal Skin: Present: Warm, Dry, Normal Color. No: Rashes Psychiatric: Present: Alert, Oriented x 3, Normal Insight, Normal Concentration Medical Decision Making ED Course and Treatment: 04/03/18 17:53 Impression: 57 year old female presents to the Emergency department complaining of back pain associated with cough and rhinorrhea. Differential Diagnosis included but are not limited to: Musculoskeletal vs. muscle spasm Plan: -- Chest X-ray -- Toradol -- Valium -- Reassess and disposition Prior Visits: Notes and results from previous visits were reviewed. Progress Notes: 04/03/18 18:24 EKG shows NSR at 65bpm with normal intervals and no st changes 04/03/18 20:11 Patient feels better. - RAD Interpretation Radiology Orders: 04/03/18 17:43 CHEST TWO VIEWS (PA/LAT) [RAD] Stat - Medication Orders Current Medication Orders: Discontinued Medications Diazepam (Valium) 2 mg PO STAT STA PRN Reason: Protocol Stop: 04/03/18 17:44 Last Admin: 04/03/18 18:37 Dose: 2 mg Ketorolac Tromethamine (Toradol) 30 mg IM STAT STA Stop: 04/03/18 17:44 Last Admin: 04/03/18 18:37 Dose: 30 mg MAR Pain Assessment Document 04/03/18 18:37 [facility] (Rec: 04/03/18 18:37 [facility] [id number]) Pain Reassessment Is this a pain reassessment? No Sleep Is patient sleeping during reassessment? No Presence of Pain Presence of Pain Yes Pain Scale Used Pain Scale Used Numeric Location Pain Location Body Site Back Description Intensity of Pain at present 8 IM Administration Charges Document 04/03/18 18:37 [facility] (Rec: 04/03/18 18:37 [facility] [id number]) Charges for Administration # of IM Administrations 1 - Scribe Statement The provider has reviewed the documentation as recorded by the Scribe Martha Bonilla. All medical record entries made by the Scribe were at my direction and personally dictated by me. I have reviewed the chart and agree that the record accurately reflects my personal performance of the history, physical exam, medical decision making, and the department course for this patient. I have also personally directed, reviewed, and agree with the discharge instructions and disposition. Disposition/Present on Arrival - Present on Arrival Any Indicators Present on Arrival: No History of DVT/PE: No History of Uncontrolled Diabetes: No Urinary Catheter: No History of Decub. Ulcer: No History Surgical Site Infection Following: None - Disposition Have Diagnosis and Disposition been Completed?: Yes Diagnosis: Muscle strain, URI (upper respiratory infection) Disposition: HOME/ ROUTINE Disposition Time: 20:12 Patient Plan: Discharge Condition: GOOD Discharge Instructions (ExitCare): Muscle Strain (DC) Additional Instructions: Follow-up with PMD within 2 days. Return to ED if condition worsens. Take flexeril for pain Prescriptions: Cyclobenzaprine [Flexeril] 5 mg PO TID #20 tab Forms: [facility] (Japanese), WORK NOTE
[2018-04-03 20:34] VITALS: BP 150/80; PULSE 60; TEMP 97.9; O2SAT 100
--- NOTE | 2018-04-03 20:55 | CARD ---
APPROVED REPORT Date of service: 04/03/2018 EKG Measurement Heart [id number] <Conclusion> Normal sinus rhythm Normal ECG
--- NOTE | 2018-04-04 09:08 | RAD ---
Date of service: 04/03/2018 HISTORY: cough COMPARISON: 10/01/2016 TECHNIQUE: Chest PA and lateral FINDINGS: LUNGS: No active pulmonary disease. PLEURA: No significant pleural effusion identified. No pneumothorax apparent. CARDIOVASCULAR: Normal. OSSEOUS STRUCTURES: No significant abnormalities. VISUALIZED UPPER ABDOMEN: Normal. OTHER FINDINGS: None. IMPRESSION: No active disease.
== END 2018-04-03 20:33 | disposition home or self-care (01) ==
LOC: ED 16:07
DX: J06.9 Acute upper respiratory infection, unspecified (principal); S29.012A Strain of muscle and tendon of back wall of thorax, initial encounter; X50.9XXA Other and unspecified overexertion or strenuous movements or postures, initial encounter; Y92.89 Other specified places as the place of occurrence of the external cause; I10 Essential (primary) hypertension; F17.210 Nicotine dependence, cigarettes, uncomplicated
CPT/HCPCS: 71046; 93005; 96372; 99284; J1885

== ENCOUNTER 2018-11-10 12:27 | Outpatient (CLI) | payer OTHER | END 2018-11-10 12:28 | disposition home or self-care (01) | LOC: RAD 12:27 ==

== ENCOUNTER 2018-11-17 13:58 | Outpatient (CLI) | payer OTHER | END 2018-11-17 13:59 | disposition home or self-care (01) | LOC: RAD 13:58 ==

== ENCOUNTER 2018-11-27 16:21 | Outpatient (CLI) | payer OTHER | END 2018-11-27 16:22 | disposition home or self-care (01) | LOC: LAB 16:21 ==